=== PATIENT | female | born 1965 | race Hispanic/Latino ===

== ENCOUNTER → 2020-06-25 | Day surgery (SDC) | payer MEDICARE ==
[~2020-06-25] MED LIST: ACETAMINOPHEN500 MG PO; ATORVASTATIN CA20 MG PO; DOXYCYCLINE HY100 MG PO; FENOFIBRATE145 MG PO; FENTANYL CITRATE/PF 100MCG/2 ML INJ ONE; FLUOXETINE HCL20 MG PO; GABAPENTIN300 MG PO; GLIPIZIDE10 MG PO; HYDROXYZINE HCL25 MG PO; INSULIN REGULAR, HUMAN 100 UNIT/1 ML 3ML VIAL ONE; LIDOCAINE HCL 2% LOCAL INJ 5 ML SDV VIAL INJ ONE; LISINOPRIL2.5 MG PO; LOMOTIL TABLET1 EACH PO; LORATADINE10 MG PO; LORAZEPAM2 MG/1 M1 PO; METFORMIN HCL500 MG PO; MIDAZOLAM HCL 2 MG/2 ML VIAL ONE; MONTELUKAST SOD10 MG PO; NOVOLOG MI100 UNIT/1 SC; NOVOLOG MI100 UNIT/1 SQ; PROPOFOL IV EMULSION 10 MG/ML 20 ML VIAL ONE; PROTONIX20 MG PO; TRAMADOL HCL100 MG PO
[2020-06-25 12:10] VITALS: BP 101/50
== END | disposition home or self-care (01) ==
LOC: OR 09:34
PROVIDERS: ATTEND Internal Medicine Gastroenterology
DX: K29.50 Unspecified chronic gastritis without bleeding (principal); K44.9 Diaphragmatic hernia without obstruction or gangrene; D64.9 Anemia, unspecified; I10 Essential (primary) hypertension; E78.5 Hyperlipidemia, unspecified; E11.9 Type 2 diabetes mellitus without complications; K85.90 Acute pancreatitis without necrosis or infection, unspecified; R06.02 Shortness of breath; F41.9 Anxiety disorder, unspecified; F17.210 Nicotine dependence, cigarettes, uncomplicated; Z01.810 Encounter for preprocedural cardiovascular examination; Z01.812 Encounter for preprocedural laboratory examination; Z20.828 Contact with and (suspected) exposure to other viral communicable diseases; Z79.4 Long term (current) use of insulin; Z87.11 Personal history of peptic ulcer disease
CPT/HCPCS: 36415; 43239; 82948; 88305; 88312; 93005; J2001; J2704; U0002; J1817; J2250; J3010